=== PATIENT | female | born 1990 | race Hispanic/Latino ===

== ENCOUNTER 2020-09-23 09:31 | Observation (INO) | payer BC, OTHER ==
[~2020-09-23] VITALS: Ht 157.5 cm; Wt 93.5 kg
[2020-09-23 10:15] LABS: BASOPHILS % (AUTO) 0.6 % (0.0-5.0); EOSINOPHILS % (AUTO) 2.3 % (0.0-8.0); HEMATOCRIT 36.6 % (36-48); MEAN CORPUSCULAR HEMOGLOBIN 30.8 pg (27.0-33.0); MEAN CORPUSCULAR HGB CONC 33.9 g/dL (32.0-36.0); MONOCYTES % (AUTO) 13.3 % (3.0-13.0); NEUTROPHILS % (AUTO) 44.8 % (40.0-77.0); PLATELET COUNT (AUTO) 237 K/uL (130-400); RED BLOOD CELL COUNT(AUTO) 4.02 MIL/uL (4.00-5.50); RED CELL DISTRIBUTION WIDTH 13.3 % (11.0-15.5); WHITE BLOOD COUNT (AUTO) 3.5 K/uL (4.8-10.8)
[2020-09-23 10:19] LABS: CREATININE 0.8 mg/dL (0.5-1.5); POTASSIUM 3.7 mmol/L (3.5-5.1)
[2020-09-23 10:24] LABS: ALBUMIN 3.6 g/dL (3.5-5.0); BILIRUBIN,TOTAL 0.4 mg/dL (0.2-1.0)
[2020-09-23 10:24] LABS: APPEARANCE,URINE Clear (CLEAR); BILIRUBIN,URINE Negative (NEGATIVE); COLOR,URINE Yellow (YELLOW); GLUCOSE, URINE (UA) Negative (NEGATIVE); KETONES,URINE 15 mg/dL (NEGATIVE); LEUKOCYTE ESTERASE ,URINE Small (NEGATIVE); NITRATE,URINE Negative (NEGATIVE); OCCULT BLOOD,URINE Negative (NEGATIVE); PROTEIN,URINE Negative (NEGATIVE); UROBILINOGEN,URINE 0.2 mg/dL (0.2-1.0)
[2020-09-23 10:26] LABS: HCG,QUAL RESULT NEGATIVE (NEGATIVE)
[2020-09-23 10:42] LABS: RBC,URINE 0-1 /HPF (0-1); WBC,URINE 0-1 /HPF (0-1)
[2020-09-23 10:43] LABS: BACTERIA,URINE Few /HPF (None Seen)
[2020-09-23] MEDS ORDERED: CEFTRIAXONE SODIUM 1 GM ONE (13:01)
[2020-09-23] MEDS ORDERED: DEXTROSE 5 %-0.45 % NACL 1,000 ML IV ONE (13:01)
[2020-09-23] MEDS ORDERED: METRONIDAZOLE 500MG/100ML BAG 100 ML ONE (13:01)
[2020-09-23] MEDS ORDERED: SODIUM CHLORIDE 0.9% 50 ML IV ONE (13:02)
[2020-09-23] MEDS ORDERED: DEXTROSE 5 % AND 0.9 % NACL 1,000 ML IV ONE (13:23)
[2020-09-23] MEDS ORDERED: ONDANSETRON HCL 4 MG/2 ML VIAL IVP PRN (14:00)
[2020-09-24] MEDS ORDERED: MORPHINE SULFATE 4 MG/1ML SYG ONE (00:24)
[2020-09-24] MEDS ORDERED: METRONIDAZOLE 500MG/100ML BAG 100 ML ONE (00:24)
[2020-09-24] MEDS ORDERED: DEXTROSE 5 %-0.45 % NACL 1,000 ML IV ONE (00:26)
[2020-09-24] MEDS ORDERED: ONDANSETRON HCL 4 MG/2 ML VIAL ONE (00:44)
[2020-09-24] MEDS: DEXTROSE 5 %-0.45 % NACL 1,000 ML IV SCH ×2 (03:20→16:40)
[2020-09-24 05:30] VITALS: BP 105/72
[2020-09-24] MEDS ORDERED: METR-172 PO (06:08)
[2020-09-24] MEDS ORDERED: ASCO1CAP5 PO (06:08)
[2020-09-24] MEDS ORDERED: BIOTIN (06:08)
[2020-09-24] MEDS ORDERED: CIPR500S5 PO (06:08)
[2020-09-24] MEDS ORDERED: MULT-1203 PO (06:08)
[2020-09-24] MEDS ORDERED: IRON (06:08)
[2020-09-24] MEDS: METRONIDAZOLE 500MG/100ML BAG 100 ML IVPB SCH ×3 (06:15→21:28)
[2020-09-24] MEDS: MORPHINE SULFATE 4 MG/1ML SYG IVP PRN ×2 (06:16→21:26)
[2020-09-24 08:00] VITALS: BP 103/71
[2020-09-24] MEDS: CEFTRIAXONE SODIUM 1 GM IVP SCH (09:37)
[2020-09-24 11:00] VITALS: BP 131/87
[2020-09-24 16:00] VITALS: BP 92/59
[2020-09-24 20:32] VITALS: BP 99/66
[2020-09-24 23:22] VITALS: BP 102/63
[2020-09-25 04:16] LABS: HEMATOCRIT 34.7 % (36-48); MEAN CORPUSCULAR HEMOGLOBIN 30.7 pg (27.0-33.0); MEAN CORPUSCULAR HGB CONC 34.3 g/dL (32.0-36.0); MEAN CORPUSCULAR VOLUME 89.4 fL (79-99); PLATELET COUNT (AUTO) 216 K/uL (130-400); RED BLOOD CELL COUNT(AUTO) 3.88 MIL/uL (4.00-5.50); WHITE BLOOD COUNT (AUTO) 3.1 K/uL (4.8-10.8)
[2020-09-25 04:25] VITALS: BP 96/58
[2020-09-25 04:32] LABS: ALBUMIN 3.1 g/dL (3.5-5.0); BILIRUBIN,TOTAL 0.4 mg/dL (0.2-1.0); CREATININE 0.7 mg/dL (0.5-1.5); TOTAL PROTEIN, SERUM 6.2 g/dL (6.0-8.3)
[2020-09-25 04:37] LABS: POTASSIUM 2.9 mmol/L (3.5-5.1)
[2020-09-25 04:41] LABS: MONOCYTES % (MANUAL) 15 % (2-9); REACTIVE LYMPHOCYTES 2 % (0-0)
[2020-09-25 04:44] LABS: BASOPHILS % (MANUAL) 1 % (0-2); EOSINOPHILS % (MANUAL) 4 % (1-6); LYMPHOCYTES % (MANUAL) 66 % (22-44); SEGMENTED NEUTROPHILS % 14 % (40-70)
[2020-09-25 04:45] LABS: MAN.DIFF COMMENT-IMPRESSION MANUAL DIFFERENTIAL
[2020-09-25] MEDS ORDERED: POTASSIUM CHLORIDE 20MEQ/100ML 100 ML IV PRN (05:30)
[2020-09-25] MEDS ORDERED: POTASSIUM CHLORIDE 10% ELIXIR 20 MEQ/15 ML UDCUP PO PRN (05:30)
[2020-09-25] MEDS ORDERED: LIDOCAINE HCL-MPF 1% 2ML VIAL IV PRN (05:30)
[2020-09-25] MEDS: METRONIDAZOLE 500MG/100ML BAG 100 ML IVPB SCH ×2 (05:44→14:06)
[2020-09-25 08:19] VITALS: BP 101/53
[2020-09-25] MEDS: CEFTRIAXONE SODIUM 1 GM IVP SCH (09:10)
[2020-09-25] MEDS: DEXTROSE 5 %-0.45 % NACL 1,000 ML IV SCH (09:10)
[2020-09-25] MEDS: POTASSIUM CHLORIDE 20 MEQ ERTAB PO PRN ×3 (12:06→16:40)
[2020-09-25 12:07] VITALS: BP 99/69
[2020-09-25 16:56] VITALS: BP 107/70
== END 2020-09-25 21:00 | disposition home or self-care (01) ==
LOC: EDH 09:31 → EDHIP 12:40 → 4AH 09-24 05:12
PROVIDERS: ADMIT Internal Medicine; ATTEND Internal Medicine
DX: R10.84 Generalized abdominal pain (principal); R11.2 Nausea with vomiting, unspecified; K52.9 Noninfective gastroenteritis and colitis, unspecified; Z90.710 Acquired absence of both cervix and uterus
CPT/HCPCS: 36415 ×2; 76830; 80053 ×2; 81001; 81025; 84132; 85025 ×2; 96361 ×2; 96365; 96366 ×2; 96375 ×2; 96376 ×2; 99284; G0378 ×56; J0696 ×3; J2270 ×3; J2405 ×2; J3480; J3490 ×8; J7042 ×4

== ENCOUNTER 2020-10-27 03:38 | Emergency (ER) | payer BC ==
[~2020-10-27 03:38] MED LIST: ASCO1CAP5 PO; BIOTIN; CIPR500S5 PO; IRON; METR-172 PO; MULT-1203 PO
[2020-10-27] MEDS ORDERED: ONDANSETRON HCL 4 MG/2 ML VIAL ONE (04:22)
[2020-10-27] MEDS ORDERED: METOCLOPRAMIDE 10 MG/2 ML VIAL ONE (04:22)
[2020-10-27] MEDS ORDERED: KETOROLAC TROMETHAMINE 30MG/ML ONE (04:23)
[2020-10-27 04:28] LABS: APPEARANCE,URINE Clear (CLEAR); BILIRUBIN,URINE Negative (NEGATIVE); COLOR,URINE Yellow (YELLOW); GLUCOSE, URINE (UA) Negative (NEGATIVE); KETONES,URINE 40 mg/dL (NEGATIVE); LEUKOCYTE ESTERASE ,URINE Trace (NEGATIVE); NITRATE,URINE Negative (NEGATIVE); OCCULT BLOOD,URINE Negative (NEGATIVE); PROTEIN,URINE Negative (NEGATIVE)
[2020-10-27 04:28] LABS: BASOPHILS % (AUTO) 0.5 % (0.0-5.0); EOSINOPHILS % (AUTO) 2.5 % (0.0-8.0); HEMATOCRIT 35.8 % (36-48); MEAN CORPUSCULAR HEMOGLOBIN 30.9 pg (27.0-33.0); MEAN CORPUSCULAR HGB CONC 34.9 g/dL (32.0-36.0); MEAN CORPUSCULAR VOLUME 88.6 fL (79-99); MONOCYTES % (AUTO) 10.2 % (3.0-13.0); NEUTROPHILS % (AUTO) 16.6 % (40.0-77.0); PLATELET COUNT (AUTO) 197 K/uL (130-400); RED BLOOD CELL COUNT(AUTO) 4.04 MIL/uL (4.00-5.50); RED CELL DISTRIBUTION WIDTH 13.8 % (11.0-15.5)
[2020-10-27 04:33] LABS: CREATININE 0.8 mg/dL (0.5-1.5)
[2020-10-27 04:34] LABS: INR 1.07 (0.85-1.15); PROTHROMBIN TIME 11.6 SEC (9.6-11.6)
[2020-10-27 04:36] LABS: PARTIAL THROMBOPLASTIN TIME 27.3 SEC (26.3-35.5)
[2020-10-27 04:38] LABS: ALBUMIN 3.8 g/dL (3.5-5.0); BILIRUBIN,TOTAL 0.4 mg/dL (0.2-1.0); TOTAL PROTEIN, SERUM 6.9 g/dL (6.0-8.3)
[2020-10-27 04:38] LABS: BACTERIA,URINE None Seen /HPF (None Seen); RBC,URINE 0-1 /HPF (0-1); WBC,URINE 0-1 /HPF (0-1)
[2020-10-27] MEDS ORDERED: IOHEXOL 350 MG/ML 100ML INFUS..BTL IV ONE (05:44)
== END 2020-10-27 08:20 | disposition home or self-care (01) ==
LOC: EDH 03:38
DX: D25.9 Leiomyoma of uterus, unspecified (principal); R10.2 Pelvic and perineal pain; Z90.710 Acquired absence of both cervix and uterus; Z90.49 Acquired absence of other specified parts of digestive tract
CPT/HCPCS: 36415; 74177; 80053; 81001; 81025; 83605; 83690; 85025; 85610; 85730; 96361; 96374; 96375; 99285; J1885; J2405; J2765; Q9967

== ENCOUNTER 2021-02-10 17:06 | Emergency (ER) | payer BC ==
[~2021-02-10] VITALS: Ht 157.5 cm; Wt 75.7 kg
[~2021-02-10 17:06] MED LIST changes: -ASCO1CAP5 PO; -BIOTIN; +BIOTIN PO; -CIPR500S5 PO; -IRON; +IRON PO; -METR-172 PO
[2021-02-10 17:08] VITALS: BP 115/65
[2021-02-10 17:28] LABS: BASOPHILS % (AUTO) 0.2 % (0.0-5.0); LYMPHOCYTES % (AUTO) 26.1 % (21.0-51.0); MEAN CORPUSCULAR HEMOGLOBIN 31.4 pg (27.0-33.0); MEAN CORPUSCULAR HGB CONC 33.6 g/dL (32.0-36.0); MEAN CORPUSCULAR VOLUME 93.5 fL (79-99); MONOCYTES % (AUTO) 6.5 % (3.0-13.0); NEUTROPHILS % (AUTO) 65.9 % (40.0-77.0); PLATELET COUNT (AUTO) 263 K/uL (130-400); RED BLOOD CELL COUNT(AUTO) 3.85 MIL/uL (4.00-5.50); RED CELL DISTRIBUTION WIDTH 13.4 % (11.0-15.5)
[2021-02-10 17:38] LABS: CREATININE 0.6 mg/dL (0.5-1.5); POTASSIUM 3.8 mmol/L (3.5-5.1)
[2021-02-10 17:43] LABS: ALBUMIN 3.6 g/dL (3.5-5.0); BILIRUBIN,TOTAL 0.6 mg/dL (0.2-1.0); TOTAL PROTEIN, SERUM 7.8 g/dL (6.0-8.3)
[2021-02-10] MEDS ORDERED: LACTULOSE 20 GM/30 ML UDCUP PO ONE (18:00)
[2021-02-10] MEDS ORDERED: MAGNESIUM CITRATE 296 ML SOLUTION PO ONE (18:00)
[2021-02-10] MEDS ORDERED: BISACODYL 10 MG SUPP.RECT RC ONE ×2 (18:10→18:30)
[2021-02-10 18:32] LABS: APPEARANCE,URINE Clear (CLEAR); BILIRUBIN,URINE Negative (NEGATIVE); COLOR,URINE Yellow (YELLOW); GLUCOSE, URINE (UA) Negative (NEGATIVE); KETONES,URINE 40 mg/dL (NEGATIVE); LEUKOCYTE ESTERASE ,URINE Trace (NEGATIVE); NITRATE,URINE Negative (NEGATIVE); OCCULT BLOOD,URINE Nonhemolyzed Trace (NEGATIVE); PROTEIN,URINE Negative (NEGATIVE)
[2021-02-10 18:45] LABS: BACTERIA,URINE Few /HPF (None Seen); MUCUS,URINE Few LPF (None Seen); SQUAMOUS EPITHELIAL CELL,UR Few /HPF (0-2)
[2021-02-10] MEDS ORDERED: LACT10PA5 PO (19:27)
[2021-02-10] MEDS ORDERED: BACI1CAP6 PO (19:28)
[2021-02-10 19:37] VITALS: BP 118/62
== END 2021-02-10 19:43 | disposition home or self-care (01) ==
LOC: EDH 17:27
DX: K59.00 Constipation, unspecified (principal); F41.9 Anxiety disorder, unspecified; Z90.710 Acquired absence of both cervix and uterus; Z98.84 Bariatric surgery status
CPT/HCPCS: 36415; 74018; 80053; 81001; 85025